=== PATIENT | female | born 1990 | race Caucasian/White ===

== ENCOUNTER 2018-10-30 11:44 | Day surgery (SDC) | payer OTHER ==
[2018-10-30] MEDS ORDERED: PROPOFOL 20 ML (12:46)
== END 2018-10-30 14:56 | disposition home or self-care (01) ==
LOC: GIL 11:44
DX: K44.9 Diaphragmatic hernia without obstruction or gangrene (principal); K21.0 Gastro-esophageal reflux disease with esophagitis
CPT/HCPCS: 43239; 84703; 88305; 88312